=== PATIENT | female | born 1965 | race Caucasian/White ===

== ENCOUNTER 2025-07-15 18:28 | Inpatient (IN) | payer SELFPAY ==
[~2025-07-15] VITALS: Ht 170.2 cm; Wt 79.8 kg
[2025-07-15 18:37] VITALS: O2SAT 97
[2025-07-15 19:36] LABS: HEMATOCRIT. 39.3 % (36.0-48.0); HEMOGLOBIN. 12.9 g/dL (12.0-16.0); MEAN PLATELET VOLUME 11.2 fl (7.4-10.4); PLATELET 152 x1000/uL (130-400); RED BLOOD CELL COUNT 4.52 mill/uL (4.2-5.4); RED CELL DISTRIBUTION WIDTH 13.3 % (11.6-14.6)
[2025-07-15 19:53] LABS: CREATININE 1.1 mg/dL (0.6-1.0)
[2025-07-15 19:54] LABS: ETHANOL BLOOD < 10 mg/dL (<10); TROPONIN I HIGH SENSITIVITY 4 ng/L (3.0-34); UREA NITROGEN BLOOD 15 mg/dL (9-23)
[2025-07-15 19:55] LABS: ASPARTATE AMINOTRANSFERASE 16 IU/L (<34)
[2025-07-15 19:56] LABS: BILIRUBIN DIRECT 0.9 mg/dL (<=3.0); BILIRUBIN TOTAL 2.7 mg/dL (0.1-1.0); PROTEIN TOTAL 6.9 g/dL (6.0-8.3)
[2025-07-15 20:09] LABS: LYMPHOCYTES % MANUAL 10.0 % (20.0-60.0); MONOCYTES % MANUAL 7.0 % (2.0-8.0); NEUTROPHILS % MANUAL 83.0 % (45.0-75.0); PLATELET ESTIMATE NORMAL
[2025-07-15] MEDS: ONDANSETRON HCL 4MG/2ML INJ IV SCH (20:18)
[2025-07-15] MEDS: MORPHINE SULFATE 4 MG/ML INJ (FOR IV/IM USE) IV SCH (20:19)
[2025-07-15] MEDS: SODIUM CHLORIDE 0.9% (SEPSIS BOLUS) IV ONE (20:55)
[2025-07-15] MEDS: AZITHROMYCIN 500MG/250ML 250 ML IV ONE (21:10)
[2025-07-15] MEDS: ACETAMINOPHEN 500MG TABLET PO ONE (21:17)
[2025-07-15] MEDS: CEFTRIAXONE 1GM/50ML 50 ML IV ONE (22:00)
[2025-07-15 22:52] LABS: CLARITY URINE CLEAR (CLEAR); COLOR URINE YELLOW (YELLOW); GLUCOSE URINE TRACE (NEGATIVE); KETONES URINE NEGATIVE (NEGATIVE); LEUKOCYTE ESTERASE URINE 2+ (NEGATIVE); NITRITE URINE NEGATIVE (NEGATIVE); OCCULT BLOOD URINE TRACE (NEGATIVE); PH URINE 6.5 (4.5-8.0); PROTEIN URINE TRACE (NEGATIVE); SPECIFIC GRAVITY URINE 1.028 (1.005-1.030); UROBILINOGEN URINE 0.2 E.U./dL (0.2-1.0)
[2025-07-15] MEDS ORDERED: MORPHINE SULFATE 2 MG/ML INJ (NOT FOR IM USE) IV ONE (23:00)
[2025-07-15 23:08] LABS: BACTERIA URINE 1+; RBC URINE 0-2 /hpf (0-2); SQUAMOUS EPITHELIAL CELL URINE FEW /lpf (RARE/1+)
[2025-07-15] MEDS ORDERED: IOHEXOL-300 100 ML BOTTLE ONE (23:13)
[2025-07-15] MEDS ORDERED: IPRATROPIUM/ALBUTEROL 0.5-3(2.5)MG/3ML NEB HHN PRN (23:30)
[2025-07-15] MEDS ORDERED: CLONIDINE 0.1MG TABLET PO PRN (23:30)
[2025-07-15] MEDS ORDERED: DEXTROSE 50% WATER 50ML SYRINGE IV PRN (23:30)
[2025-07-15] MEDS ORDERED: ONDANSETRON HCL 4MG/2ML INJ IV PRN (23:30)
[2025-07-15] MEDS ORDERED: MAGNESIUM/ALUMINUM HYDROXIDE/SIMETHICONE 30ML UDC PO PRN (23:30)
[2025-07-15] MEDS ORDERED: ACETAMINOPHEN 1000MG/100ML 100 ML IV PRN (23:30)
[2025-07-15] MEDS ORDERED: NALOXONE HCL 0.4MG/ML VIAL IV PRN (23:45)
[2025-07-15] MEDS ORDERED: METRONIDAZOLE 500 MG PREMIX 100 ML IV NR (23:45)
[2025-07-16] VITALS: BP_SYST 105; BP_SYST 127; BP_DIAS 56; BP_DIAS 65; PULSE 87; PULSE 96; RESP 18; RESP 19; TEMP 36.1956; TEMP 36.7; O2SAT 96
[2025-07-16 01:22] LABS: *AMPHETAMINES SCREEN URINE NEGATIVE (NEGATIVE); *BARBITURATES SCREEN URINE NEGATIVE (NEGATIVE); *BENZODIAZEPINES SCREEN URINE NEGATIVE (NEGATIVE); *COCAINE SCREEN URINE NEGATIVE (NEGATIVE); CANNABINOID URINE SCREEN NEGATIVE (NEGATIVE); ECSTASY MDMA SCREEN URINE NEGATIVE (NEGATIVE); METHADONE URINE SCREEN NEGATIVE (NEGATIVE); OPIATES URINE SCREEN PRESUMPTIVE POSITIVE (NEGATIVE); PHENCYCLIDINE URINE SCREEN NEGATIVE (NEGATIVE)
[2025-07-16] MEDS: SODIUM CHLORIDE 0.9% 1,000 ML IV ONE (01:23)
[2025-07-16] MEDS: METRONIDAZOLE 500 MG PREMIX 100 ML IV NR (01:30)
[2025-07-16] MEDS: MORPHINE SULFATE 4 MG/ML INJ (FOR IV/IM USE) IV PRN ×2 (05:25→20:56)
[2025-07-16] MEDS: DEXT 5%/0.9% NACL 1,000 ML IV SCH (06:30)
[2025-07-16] MEDS: BLOOD SUGAR DIAGNOSTIC STRIP TEST SCH (06:53)
[2025-07-16] MEDS ORDERED: BUPIVACAINE HCL/PF 0.5% (5MG/ML) 10ML ONE (07:23)
[2025-07-16 07:27] LABS: HEMATOCRIT. 38.9 % (36.0-48.0); HEMOGLOBIN. 12.8 g/dL (12.0-16.0); MEAN PLATELET VOLUME 11.6 fl (7.4-10.4); PLATELET 135 x1000/uL (130-400); RED BLOOD CELL COUNT 4.41 mill/uL (4.2-5.4); RED CELL DISTRIBUTION WIDTH 13.3 % (11.6-14.6)
[2025-07-16 07:37] LABS: CREATININE 0.8 mg/dL (0.6-1.0); UREA NITROGEN BLOOD 10 mg/dL (9-23)
[2025-07-16 08:00] VITALS: BP 109/45; PULSE 99; RESP 20; TEMP 37.2; O2SAT 96
[2025-07-16] MEDS ORDERED: FAMOTIDINE 20MG/2ML VIAL IV ONE (08:49)
[2025-07-16] MEDS ORDERED: ACETAMINOPHEN 1000MG/100ML 100 ML IV ONE (08:49)
[2025-07-16] MEDS ORDERED: ONDANSETRON HCL 4MG/2ML INJ IV PRN (09:00)
[2025-07-16] MEDS ORDERED: HYDRALAZINE 20MG/ML VIAL IV PRN ×2 (09:00)
[2025-07-16] MEDS ORDERED: LABETALOL 5MG/ML 4ML INJ IV PRN (09:00)
[2025-07-16] MEDS ORDERED: HYDROMORPHONE HCL/PF 1MG/ML INJ IV PRN (09:00)
[2025-07-16] MEDS ORDERED: ACETAMINOPHEN 650MG SUPP PR PRN (09:15)
[2025-07-16] MEDS ORDERED: HYDROCODONE/ACETAMINOPHEN 5/325MG TABLET PO PRN ×2 (09:15)
[2025-07-16] MEDS ORDERED: SKIN ADHESIVE 0.7 GM EA TOP ONE (09:46)
[2025-07-16 12:00] VITALS: BP 103/55; PULSE 72; RESP 18; TEMP 36.7; O2SAT 97
[2025-07-16] MEDS: DEXT 5%/0.45% NACL KCL 20MEQ/L 1,000 ML IV SCH (12:51)
[2025-07-16] MEDS: PIPERACILLIN/TAZO 3.375G/50ML 50 ML IV SCH (13:08)
[2025-07-16 16:00] VITALS: BP 108/51; PULSE 76; RESP 18; TEMP 36.3; O2SAT 99
[2025-07-16] MEDS ORDERED: DEXT 5%/0.9% NACL 1,000 ML IV SCH (17:00)
[2025-07-16 17:35] LABS: BAND% 2.0 % (1.0-6.0); LYMPHOCYTES % MANUAL 6.0 % (20.0-60.0); MONOCYTES % MANUAL 6.0 % (2.0-8.0); NEUTROPHILS % MANUAL 86.0 % (45.0-75.0); PLATELET ESTIMATE NORMAL
[2025-07-16 20:00] VITALS: BP 122/55; PULSE 89; RESP 20; TEMP 36.3; O2SAT 98
[2025-07-17] VITALS: BP 117/60; PULSE 91; RESP 20; TEMP 36.6; O2SAT 97
[2025-07-17 04:00] VITALS: BP 102/57; PULSE 93; RESP 20; TEMP 36.4; O2SAT 99
[2025-07-17 06:25] LABS: PLATELET 138 x1000/uL (130-400); RED BLOOD CELL COUNT 4.03 mill/uL (4.2-5.4); RED CELL DISTRIBUTION WIDTH 13.5 % (11.6-14.6)
[2025-07-17 06:42] LABS: CREATININE 0.8 mg/dL (0.6-1.0); UREA NITROGEN BLOOD 12 mg/dL (9-23)
[2025-07-17 08:00] VITALS: BP 105/48; PULSE 94; RESP 18; TEMP 36.8; O2SAT 100
[2025-07-17 12:00] VITALS: BP 109/59; PULSE 90; RESP 18; TEMP 36.3; O2SAT 100
[2025-07-17] MEDS: MORPHINE SULFATE 4 MG/ML INJ (FOR IV/IM USE) IV PRN (15:16)
[2025-07-17 16:00] VITALS: BP 111/55; PULSE 93; RESP 18; TEMP 36.8; O2SAT 100
[2025-07-17 20:00] VITALS: BP 123/66; PULSE 94; RESP 20; TEMP 36.4; O2SAT 96
[2025-07-18 04:00] VITALS: BP 124/59; PULSE 108; RESP 20; TEMP 36.8; O2SAT 99
[2025-07-18 08:00] VITALS: BP 123/69; PULSE 107; RESP 18; TEMP 36.8; O2SAT 95
[2025-07-18 12:00] VITALS: BP 107/64; PULSE 94; RESP 16; TEMP 36.9; O2SAT 98
[2025-07-18 16:00] VITALS: BP 122/61; PULSE 97; RESP 16; TEMP 36.4; O2SAT 95
[2025-07-18 20:00] VITALS: BP 109/57; PULSE 98; RESP 18; TEMP 36.7; O2SAT 95
[2025-07-19] VITALS: BP 112/59; PULSE 97; RESP 18; TEMP 36.6; O2SAT 96
[2025-07-19 08:00] VITALS: BP 122/68; PULSE 94; RESP 18; TEMP 36.4; O2SAT 95
[2025-07-19 12:00] VITALS: BP 123/73; PULSE 91; RESP 19; TEMP 36.4; O2SAT 96
[2025-07-19 16:00] VITALS: BP 124/67; PULSE 96; RESP 19; TEMP 36.4; O2SAT 95
[2025-07-19 20:00] VITALS: BP 136/71; PULSE 91; RESP 18; TEMP 37.6; O2SAT 96
[2025-07-19] MEDS ORDERED: DEXTROSE 50% WATER 50ML SYRINGE IV PRN (20:15)
[2025-07-19] MEDS: INSULIN LISPRO 100 UNITS/ML SUBCUT SCH (20:44)
[2025-07-20] VITALS: BP 122/72; PULSE 82; RESP 18; TEMP 37.1; O2SAT 97
[2025-07-20 04:00] VITALS: BP 143/65; PULSE 85; RESP 18; TEMP 36.5; O2SAT 95
[2025-07-20 08:00] VITALS: BP 116/70; PULSE 80; RESP 20; TEMP 36.3; O2SAT 96
[2025-07-20 12:00] VITALS: BP 110/63; PULSE 83; RESP 20; TEMP 36.4; O2SAT 95
[2025-07-20] MEDS ORDERED: TRAM-534 PO ×2 (14:13→17:39)
[2025-07-20 14:49] VITALS: BP 118/70; PULSE 80; RESP 18; TEMP 97.8
[2025-07-20 16:00] VITALS: BP 122/83; PULSE 84; RESP 20; TEMP 36.5; O2SAT 96
== END 2025-07-20 17:26 | disposition home or self-care (01) | DRG 233 ==
LOC: ER 18:28 → 7WST 21:39 → EDBEDREQ 21:41 → EDBEDREQTM 21:41 → ENRESERV 22:28 → 6EST 07-16 11:11 → 7WST 07-16 11:11 → 6EST 07-16 14:33
PROVIDERS: ADMIT Internal Medicine; ATTEND Internal Medicine
PROC: 0DTJ4ZZ Resection of Appendix, Percutaneous Endoscopic Approach (ICD-10-PCS; principal; 2025-07-16)
DX: K35.32 Acute appendicitis with perforation, localized peritonitis, and gangrene, without abscess (principal); E87.1 Hypo-osmolality and hyponatremia; N17.9 Acute kidney failure, unspecified; E03.9 Hypothyroidism, unspecified; E11.22 Type 2 diabetes mellitus with diabetic chronic kidney disease; E11.65 Type 2 diabetes mellitus with hyperglycemia; N18.9 Chronic kidney disease, unspecified; E80.6 Other disorders of bilirubin metabolism; K38.1 Appendicular concretions; E87.6 Hypokalemia; I10 Essential (primary) hypertension; Z95.828 Presence of other vascular implants and grafts
CPT/HCPCS: 36415; 71045; 74177; 80048; 80076; 80305; 80320; 81003; 82962; 83036; 83605; 84484; 85025; 85027; 88304; 93005; 99291; A4606; J0456; J0665; J0696; J1308; J1815; J2270; J2405; J2543; J3490; J7030; J7042; Q9967; G0480; J0131